=== PATIENT | female | born 1980 | race Caucasian/White ===

== ENCOUNTER 2023-05-31 11:02 | Emergency (ER) | payer BC ==
[2023-05-31 13:22] LABS: #Basophils 0.1 10x3/uL (0.0-0.2); #Eosinphils 0.1 10x3/uL (0.0-0.5); #Monocytes 0.7 10x3/uL (0.0-1.1); #Neutrophils 9.6 10x3/uL (1.5-8.4); %Basophils 0.7 % (0.0-2.0); %Eosinophils 0.8 % (0.0-6.0); %Lymphocytes 21.9 % (18.0-47.0); %Monocytes 5.4 % (0.0-10.0); %Neutrophils 70.8 % (40.0-75.0); Hematocrit 42.6 % (34.9-44.5); Hemoglobin 14.1 g/dL (12.0-15.5); Mean Corpuscular HGB CONC 33.1 g/dL (32.0-36.0); Mean Corpuscular Hemoglobin 29.9 pg (27.0-33.0); Mean Corpuscular Volume 90.3 fl (81.6-98.3); Mean Platelet Volume 8.7 fl (7.4-10.4); Platelet Count 358 10x3/uL (150-450); RBC Distribution Width 12.7 % (11.5-14.5); Red Blood Cell (RBC) Count 4.72 10x6/uL (3.90-5.03); White Blood Cell (WBC) Count 13.6 10x3/uL (3.5-10.5)
[2023-05-31 13:28] LABS: BHCG - Serum Negative (NEGATIVE); Pregs Control Background? CLEAR/WHITE (CLR/WHITE); Pregs Control Bar Appear? YES (CONTROL BAR)
[2023-05-31 13:39] LABS: Troponin I Less than 0.010 ng/mL (< 0.028)
[2023-05-31 16:23] LABS: ALT (SGPT) 33 U/L (8-55); AST (SGOT) 24 U/L (5-34); Alkaline Phosphatase 108 U/L (40-110); Anion Gap 18 mmol/L (10-20); BUN (Urea Nitrogen) 10 mg/dL (7.0-18.7); Bilirubin, Total 0.5 mg/dL (0.2-1.2); Calc. Creatinine Clearance 0 mL/min (70-130); Calcium 9.8 mg/dL (7.8-10.44); Carbon Dioxide 22 mmol/L (22-29); Chloride 104 mmol/L (98-107); Estimated GFR 89; Globulin 3.6 g/dL (2.4-3.5); Glucose 83 mg/dL (70-105); Potassium 4.7 mmol/L (3.5-5.1); Protein, Total 7.6 g/dL (6.0-8.3); Sodium 139 mmol/L (136-145)
== END 2023-05-31 14:23 | disposition home or self-care (01) ==
LOC: CSHERS 11:02
DX: R07.9 Chest pain, unspecified (principal); F43.0 Acute stress reaction
CPT/HCPCS: 71045; 80053; 84443; 84484; 84703; 85025; 93005

== ENCOUNTER 2023-08-07 07:58 | Outpatient (CLI) | payer BC | END 2023-08-07 07:59 | disposition home or self-care (01) | LOC: CSHMRI 07:58 | PROVIDERS: ATTEND Family Medicine | DX: H40.051 Ocular hypertension, right eye (principal); R90.82 White matter disease, unspecified | CPT/HCPCS: 70551 ==

== ENCOUNTER 2023-09-05 14:54 | Outpatient (CLI) | payer BC | END 2023-09-05 14:55 | disposition home or self-care (01) | LOC: CSHMAMMO 14:54 | PROVIDERS: ATTEND Family Medicine | DX: Z12.31 Encounter for screening mammogram for malignant neoplasm of breast (principal); N64.89 Other specified disorders of breast | CPT/HCPCS: 77063; 77067 ==

== ENCOUNTER 2023-09-10 08:17 | Outpatient (CLI) | payer BC | END 2023-09-10 08:18 | disposition home or self-care (01) | LOC: CSHMAMMO 08:17 | PROVIDERS: ATTEND Family Medicine | DX: N64.89 Other specified disorders of breast (principal); N63.12 Unspecified lump in the right breast, upper inner quadrant | CPT/HCPCS: G0279 ==

== ENCOUNTER 2024-07-09 12:58 | Outpatient (CLI) | payer BC | END 2024-07-09 12:59 | disposition home or self-care (01) | LOC: CSHDTY/OP 12:58 | PROVIDERS: ATTEND Specialist | DX: E66.01 Morbid (severe) obesity due to excess calories (principal) | CPT/HCPCS: 97802 ==

== ENCOUNTER 2025-09-13 05:55 | Day surgery (SDC) | payer BC ==
[2025-09-10 10:32] VITALS: BMI 29.6
[2025-09-10 10:46] LABS: Hematocrit 41.1 % (34.9-44.5); Hemoglobin 13.9 g/dL (12.0-15.5); Mean Corpuscular Hemoglobin 31.5 pg (27.0-33.0); Mean Corpuscular Volume 93.2 fL (81.6-98.3); Platelet Count 285 10x3/uL (150-450); Red Blood Cell (RBC) Count 4.41 10x6/uL (3.90-5.03); White Blood Cell (WBC) Count 7.83 10x3/uL (3.5-10.5)
[2025-09-10 12:25] LABS: BHCG - Serum Negative (NEGATIVE); Pregs Control Background? CLEAR/WHITE (CLR/WHITE); Pregs Control Bar Appear? YES (CONTROL BAR)
[2025-09-13] MEDS ORDERED: Rocuronium Bromide 10 MG/ML (10ML VIAL) ONE (06:50)
[2025-09-13] MEDS ORDERED: PROPOFOL 40 ML ONE (06:50)
[2025-09-13] MEDS ORDERED: Ondansetron PF 4 MG/2 ML Vial ONE (06:50)
[2025-09-13] MEDS ORDERED: Ketorolac Tromethamine 30 MG (1 mL) VIAL ONE ×2 (06:50→07:02)
[2025-09-13] MEDS ORDERED: SUGAMMADEX SODIUM 200 MG/2 ML VIAL ONE (06:50)
[2025-09-13] MEDS ORDERED: Lidocaine 2% PF 100 mg/5 ml Syringe ONE (06:50)
[2025-09-13] MEDS ORDERED: Lidocaine 1% (PF) 30 ML VIAL ONE (06:50)
[2025-09-13] MEDS ORDERED: Bupivacaine HCl 0.5%/Epinephrine 1:200,000/PF 30 ml Vial ONE (06:59)
[2025-09-13] MEDS ORDERED: Gabapentin 300 MG CAP ONE (07:02)
[2025-09-13] MEDS ORDERED: metroNIDAZOLE 500 MG (100 mL) BAG ONE (07:02)
[2025-09-13] MEDS ORDERED: Famotidine/PF 20 mg/2ml Vial ONE (07:03)
[2025-09-13] MEDS ORDERED: CEFAZOLIN 2 GM VIAL ONE (07:22)
[2025-09-13] MEDS ORDERED: Scopolamine 1 mg/72 hour Patch ONE (07:30)
[2025-09-13] MEDS ORDERED: Glycopyrrolate 0.2 MG/ML 5 ML SYRINGE ONE (08:10)
[2025-09-13] MEDS ORDERED: HYDROcodone/Acetaminophen 5/325 mg Tablet ONE (11:53)
== END 2025-09-13 12:52 | disposition home or self-care (01) ==
LOC: CSHSDC 05:55
PROVIDERS: ATTEND Obstetrics & Gynecology
PROC: 0UT90ZZ Resection of Uterus, Open Approach (ICD-10-PCS; principal; 2025-09-13)
DX: D25.1 Intramural leiomyoma of uterus (principal); N84.1 Polyp of cervix uteri; Z87.891 Personal history of nicotine dependence; Z88.8 Allergy status to other drugs, medicaments and biological substances; Z98.84 Bariatric surgery status; Z98.890 Other specified postprocedural states
CPT/HCPCS: 36415; 84703; 85027; 86850; 86900; 86901; 88307; C9250-JZ; J1100; J1308; J1885; J2003; J2250; J2405; J2704; J3010; S2900